=== PATIENT | male | born 1960 | race Caucasian/White ===

== ENCOUNTER 2023-03-25 09:00 | Emergency (ER) | payer BC, SELFPAY ==
[2023-03-25] VITALS (7 sets, daily range): BP systolic 157–164; BP diastolic 92–101; PULSE 76–94; RESP 16; O2SAT 96–98; BMI 35.2
[2023-03-25] MEDS: sodium chloride 0.9% 1,000 ML 999 ML IV (09:36)
[2023-03-25 09:42] LABS: Basophils # 0.1 10^3/uL (0.0-0.1); Basophils % 1.3 %; Eosinophils # 0.2 10^3/uL (0.0-0.8); Hematocrit 50.6 % (37-53); Lymphocytes # 2.5 10^3/uL (0.8-4.8); Lymphocytes % 23.3 %; Mean Corpuscular HGB Conc 32.8 g/dL (30-55); Mean Corpuscular Hemoglobin 29.6 pg (27-33); Mean Corpuscular Volume 90.2 fl (82-101); Mean Platelet Volume 9.3 fL (7.4-10.4); Monocytes # 0.7 10^3/uL (0.2-0.9); Monocytes % 6.8 %; Neutrophils # 7.11 10^3/uL (1.8-7.7); Neutrophils % 66.2 %; Nucleated Red Blood Cells % 0 %; Platelet Count 319 10^3/cmm (157-399); Red Blood Count 5.61 10^6/uL (3.85-5.65); Red Cell Distribution Width 12.6 % (12.1-15.1); White Blood Count 10.73 10^3/uL (3.29-11.43)
--- NOTE | 2023-03-25 10:02 | ECG_ITS ---
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 Measurements Intervals [place] Rate: 77 P: 33 VA: 137 QRS: -40 QRSD: 120 T: 9 QT: 383 QTc: 436 Interpretive Statements SINUS RHYTHM LEFT AXIS DEVIATION [QRS AXIS < -30] RIGHT BUNDLE BRANCH BLOCK [120+ ms QRS DURATION, UPRIGHT V1, 40+ ms S IN I/aVL/V4/V5/V6] Compared to ECG 03/23/2016 10:48:14 Left-axis deviation now present Sinus tachycardia no longer present Indeterminate axis no longer present Electronically Signed On 03-25-2023 20:04:15 CDT by Cassius Holm M.D. [id number]
--- NOTE | 2023-03-25 10:03 | XR_ITS ---
WS: [id number] EXAMINATION: XR chest 1V portable [id number] REASON FOR EXAM: Chest pain COMPARISON: Previous study ORDER DATE: 03/25/2023 10:04 AM TECHNIQUE: A single, portable frontal chest x-ray was obtained. X-RAY FINDINGS: The lungs are clear. Pleural spaces are clear. No pleural effusions or pneumothorax. Cardiomediastinal silhouette is normal. No evidence for pulmonary edema. Soft tissue and osseous structures are unremarkable. No tubes or lines are present. IMPRESSION: Unremarkable frontal portable chest x-ray.
--- NOTE | 2023-03-25 10:03 | ED_ITS ---
HPI - Abdominal Pain General: Chief Complaint: Abdominal Pain Stated Complaint: upber abd pain Time Seen by Provider: 03/25/23 09:01 History of Present Illness: 62-year-old male presents emergency room complaining of flashes of pain in the epigastric chest region he has had a couple episodes this morning while he was resting he gets sharp pains that last for a second or 2. And then are gone. He is noticed anything that seems to aggravate or relieve it. No diaphoresis no shortness of breath no nausea or vomiting associated with it no recent hematochezia melena hematemesis coffee-ground emesis vomiting or diarrhea. MD elicited complaint: abdominal pain Onset (ago): hour(s) Pain Consistency: intermittent Location: Epigastric Severity: mild Quality: sharp Radiation: none Exacerbating factors: nothing Relieving factors: nothing Associated Symptoms: Denies anorexia, chills, dyspepsia, dysuria, fever(s), hematuria, loose stools, nausea, poor appetite, syncope and vomiting Review of Systems Const: Denies: fever(s) or chills Card: Denies: syncope Resp: Denies: dyspnea, productive cough or non-productive cough GI: Reports: abdominal pain; Denies: nausea or vomiting : Denies: dysuria, urinary frequency, urinary urgency or hematuria Skin/Breast: Denies: rash or pruritus Physical Exam Const: COMMON NORMALS: no acute distress GENERAL APPEARANCE: cooperative and comfortable ORIENTATION/CONSCIOUSNESS: Yes awake, Yes oriented to person, Yes oriented to place and Yes oriented to time HENMT: COMMON NORMALS: normocephalic, atraumatic and hearing grossly normal bilaterally HEAD & SCALP: normocephalic and atraumatic Resp: COMMON NORMALS: normal respiratory effort, No retractions, No use of accessory muscles and clear to auscultation bilaterally AUSCULTATION: clear to auscultation bilaterally Cardio: COMMON NORMALS: regular rate, regular rhythm and No murmurs present (Cardio) RATE: regular rate RHYTHM: regular rhythm GI: COMMON NORMALS: Soft to palpation and No hepatosplenomegaly present AUSCULTATION: Yes normoactive bowel sounds PALPATION: Yes Soft to palpation, No Tenderness to palpation present (GI), No Guarding due to palpation present (GI) and Yes No hepatosplenomegaly present Extremity: COMMON NORMALS: normal to inspection, capillary refill normal, no clubbing, cyanosis or edema, no calf tenderness and no pedal edema Neuro: SENSORIUM/ORIENTATION: Yes oriented to person, Yes oriented to place and Yes oriented to time Skin: COMMON NORMALS: no rashes or lesions noted GENERAL SKIN EXAM: no rashes or lesions noted Course Vital Signs: Vital signs: Vital Signs Pulse Rate 76 03/25/23 13:15 Respiratory Rate 16 03/25/23 13:15 Blood Pressure 157/98 03/25/23 13:15 Pulse Oximetry 98 03/25/23 13:15 Oxygen Delivery Me thod Room Air 03/25/23 09:12 MDM - Abdominal Pain Medical Decision Making Labs imaging and EKG reviewed. EKG shows no acute ST changes cardiac enzymes trending normal no elevation. Symptoms are resolved. Suspected GI source. Start on pantoprazole 40 twice daily for 2 weeks then daily. We will also set up outpatient cardiac stress testing recommend baby aspirin daily as well return if has recurrence of symptoms Medical Records I reviewed the patient's medical records. Lab Data I reviewed the patient's lab results. 03/25/23 09:30 03/25/23 09:30 Labs/Radiology: Laboratory Results WBC 10.73 10^3/uL (3.29-11.43) 03/25/23 09:30 RBC 5.61 10^6/uL (3.85-5.65) 03/25/23 09:30 Hgb 16.60 g/dL (11.27-16.99) 03/25/23 09:30 Hct 50.6 % (37-53) 03/25/23 09:30 MCV 90.2 fl (82-101) 03/25/23 09:30 MCH 29.6 pg (27-33) 03/25/23 09:30 MCHC 32.8 g/dL (30-55) 03/25/23 09:30 RDW 12.6 % (12.1-15.1) 03/25/23 09:30 Plt Count 319 10^3/cmm (157-399) 03/25/23 09:30 MPV 9.3 fL (7.4-10.4) 03/25/23 09:30 Neut % (Auto) 66.2 % 03/25/23 09:30 Lymph % (Auto) 23.3 % 03/25/23 09:30 [place] % (Auto) 6.8 % 03/25/23 09:30 Eos % (Auto) 2.0 % 03/25/23 09:30 Baso % (Auto) 1.3 % 03/25/23 09:30 Neut # (Auto) 7.11 10^3/uL (1.8-7.7) 03/25/23 09:30 Lymph # (Auto) 2.5 10^3/uL (0.8-4.8) 03/25/23 09:30 [place] # (Auto) 0.7 10^3/uL (0.2-0.9) 03/25/23 09:30 Eos # (Auto) 0.2 10^3/uL (0.0-0.8) 03/25/23 09:30 Baso # (Auto) 0.1 10^3/uL (0.0-0.1) 03/25/23 09:30 Nucleated RBC % (auto) 0 % 03/25/23 09:30 Nucleated RBCs # 0.0 /100WBC 03/25/23 09:30 Sodium 139 mmol/L (136-145) 03/25/23 09:30 Potassium 4.7 mmol/L (3.5-5.1) 03/25/23 09:30 Chloride 106 mmol/L (98-107) 03/25/23 09:30 Carbon Dioxide 24 mmol/L (22-29) 03/25/23 09:30 Anion Gap 13.7 (5-19) 03/25/23 09:30 BUN 10 mg/dL (8-23) 03/25/23 09:30 Creatinine 0.9 mg/dL (0.7-1.2) 03/25/23 09:30 GFR Calculation 85.8 mL/min (90-130) L 03/25/23 09:30 Glucose 130 mg/dL (65-115) H 03/25/23 09:30 Calculated Osmolality 289 mOsm/kg (285-295) 03/25/23 09:30 Calcium 9.3 mg/dL (8.5-10.5) 03/25/23 09:30 Total Bilirubin 0.3 mg/dL (0.15-1.2) 03/25/23 09:30 AST 17 U/L (0-40) 03/25/23 09:30 ALT 23 U/L (0-41) 03/25/23 09:30 Alkaline Phosphatase 110 U/L (40-130) 03/25/23 09:30 Troponin T Baseline 6 ng/L (0-15) 03/25/23 09:30 Troponin T 120 Minute 6.00 ng/L (0-15) 03/25/23 11:30 Delta Troponin T 0 ABS# (0-10) 03/25/23 11:30 Total Protein 7.4 g/dL (6.6-8.7) 03/25/23 09:30 Albumin 4.1 g/dL (3.5-5.2) 03/25/23 09:30 Globulin 3.3 g/dL (1.3-4.6) 03/25/23 09:30 Lipase 49 U/L (13-60) 03/25/23 09:30 Urine Color Yellow (Yellow) 03/25/23 10:05 Urine Appearance Clear (CLEAR) 03/25/23 10:05 Urine pH 7 (5-7) 03/25/23 10:05 Ur Specific [place] 1.010 (1.005-1.030) 03/25/23 10:05 Urine Protein Neg (Negative) 03/25/23 10:05 Urine Glucose (UA) Norm (Normal) 03/25/23 10:05 Urine Ketones Negative (Negative) 03/25/23 10:05 Urine Blood Neg (Negative) 03/25/23 10:05 Urine Nitrate Negative (Negative) 03/25/23 10:05 Urine Bilirubin Neg (Negative) 03/25/23 10:05 Urine Urobilinogen Norm mg/dL (Negative) 03/25/23 10:05 Ur Leukocyte Esterase Negative (Negative) 03/25/23 10:05 Discharge Plan Discharge Patient Disposition: Home Clinical Impression: Chest pain due to gastrointestinal reflux disease, Elevated blood pressure reading Condition: Stable Prescriptions: New Protonix 40 mg tablet,delayed release (DR/EC) 40 mg PO BID 30 Days Qty: 60 0RF Rx Instructions: Twice daily x2 weeks then daily Discontinued omeprazole magnesium [Prilosec OTC] 20 mg Tablet,Delayed Release (Dr/Ec) 20 mg PO QAM No Action Aspir-81 81 mg Tablet,Delayed Release (Dr/Ec) 81 mg PO DAILY PRN (Reason: Chest Pain) Suphedrine PE 10 mg Tablet 10 mg PO DAILY PRN (Reason: Nasal Congestion) Discharge Orders: Discharge ED (Routine); Ordered 03/25/23 Ordered By: Jack Us Referrals: Hans Jessica MD [Primary Care Provider] - Discharge Diet: As Directed Discharge Activity: Increase activity as tolerated Patient Instructions: Diet for Stomach Ulcers and Gastritis (ED), GERD (Gastroesophageal Reflux Disease) (ED), Opioid Safety, Pain Management Coding Level of Care Code ED Electrical Maintenance Engineer for Amrik Resendiz
[2023-03-25 10:07] LABS: Alanine Aminotransferase 23 U/L (0-41); Albumin Level 4.1 g/dL (3.5-5.2); Alkaline Phosphatase 110 U/L (40-130); Anion Gap 13.7 (5-19); Aspartate Amino Transferase 17 U/L (0-40); Blood Urea Nitrogen 10 mg/dL (8-23); Calcium 9.3 mg/dL (8.5-10.5); Carbon Dioxide 24 mmol/L (22-29); Chloride 106 mmol/L (98-107); Globulin 3.3 g/dL (1.3-4.6); Glomerular Filtration Rate 85.8 mL/min (90-130); Glucose 130 mg/dL (65-115); Lipase 49 U/L (13-60); Osmolality Calculated 289 mOsm/kg (285-295); Potassium 4.7 mmol/L (3.5-5.1); Sodium 139 mmol/L (136-145); Total Bilirubin 0.3 mg/dL (0.15-1.2); Total Protein 7.4 g/dL (6.6-8.7)
--- NOTE | 2023-03-25 10:08 | PC.NURSE ---
Pt resting in bed, pt voided for UA and it was taken to lab by nurse. Denies any needs at this time.
[2023-03-25 10:13] LABS: Add Urine Microscopic? NO; Charge for UA Resulting for Rev
[2023-03-25 10:21] LABS: Bilirubin Urine Neg (Negative); Blood Urine Neg (Negative); Glucose Urine UA Norm (Normal); Ketones Urine Negative (Negative); Leukocyte Esterase Urine Negative (Negative); Nitrate Urine Negative (Negative); Protein Urine Neg (Negative); Urine Appearance Clear (CLEAR); Urine Color Yellow (Yellow); Urobilinogen Urine Norm (Negative); pH Urine 7 (5-7)
[2023-03-25 10:21] LABS: Troponin(5th) Baseline 6 ng/L (0-15)
--- NOTE | 2023-03-25 12:06 | ECG_ITS ---
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 Measurements Intervals [place] Rate: 73 P: 44 MT: 140 QRS: -39 QRSD: 118 T: 5 QT: 384 QTc: 425 Interpretive Statements SINUS RHYTHM LEFT AXIS DEVIATION [QRS AXIS < -30] LOW QRS VOLTAGE IN PRECORDIAL LEADS [QRS DEFLECTION < 1.0 mV IN CHEST LEADS] INCOMPLETE RIGHT BUNDLE BRANCH BLOCK [90+ ms QRS DURATION, TERMINAL R IN V1/V2, 40+ ms S IN I/aVL/V4/V5/V6] Compared to ECG 03/25/2023 10:08:27 Low QRS voltage now present Incomplete right bundle-branch block now present Right bundle-branch block no longer present Electronically Signed On 03-25-2023 20:44:25 CDT by Cassius Holm M.D. [id number]
[2023-03-25 12:43] LABS: Troponin 5 2HR Delta 0 ABS# (0-10)
== END 2023-03-25 13:18 | disposition home or self-care (01) ==
PROVIDERS: Emergency Provider Family Medicine; PCP Family Medicine
DX: K21.9 Gastro-esophageal reflux disease without esophagitis (principal); R03.0 Elevated blood-pressure reading, without diagnosis of hypertension; Z79.82 Long term (current) use of aspirin
CPT/HCPCS: 36415; 71045; 80053; 81003; 83690; 84484; 85025; 93005; 99285; J7030